=== PATIENT | male | born 1990 | race African-American/Black ===

== ENCOUNTER 2022-08-22 14:00 | Inpatient (IN) | payer OTHER ==
[2022-08-22 15:45] VITALS: BMI 21.1
[2022-08-22] MEDS ORDERED: BISMUTH SUBSALICYLATE 524 MG/30 ML PO PRN (19:01)
[2022-08-22] MEDS ORDERED: NICOTINE 10 MG CARTRIDGE (INHALER) IH PRN (19:01)
[2022-08-22] MEDS ORDERED: cloNIDine HCL 0.1 MG TABLET PO PRN (19:01)
[2022-08-22] MEDS ORDERED: ACETAMINOPHEN 325 MG TABLET (FP) PO PRN ×2 (19:01)
[2022-08-22] MEDS ORDERED: MAGNESIUM CITRATE 300 ML BOTTLE PO PRN (19:01)
[2022-08-22] MEDS ORDERED: BENZOCAINE/MENTHOL (CHLORASEPTIC ) LOZENGE MM PRN (19:01)
[2022-08-22] MEDS ORDERED: IBUPROFEN 600 MG TABLET (FP) PO PRN (19:01)
[2022-08-22] MEDS ORDERED: methaDONE HCL 10 MG TABLET (FOR DETOX USE ONLY) PO ONE (19:01)
[2022-08-22] MEDS ORDERED: NALOXONE HCL (KLOXXADO) 8 MG SPRAY NS PRN (19:01)
[2022-08-22] MEDS ORDERED: IBUPROFEN 400 MG TABLET (FP) PO PRN (19:01)
[2022-08-22] MEDS ORDERED: MAGNESIUM HYDROX 2400MG/30ML ORAL SUSPENSION 30 ML CUP PO PRN (19:01)
[2022-08-22] MEDS ORDERED: MAG HYDROX/AL HYDROX/SIMETH 30 ML UNIT-DOSE CUP PO PRN (19:01)
[2022-08-22] MEDS ORDERED: LOPERAMIDE HCL 2 MG CAPSULE PO PRN (19:01)
[2022-08-22] MEDS: diazePAM 5 MG TABLET PO SCH (23:14)
[2022-08-22] MEDS: MELATONIN 5 MG TABLETS PO SCH (23:14)
[2022-08-22] MEDS: THIAMINE HCL 100 MG TABLET (FP) PO SCH (23:14)
[2022-08-23] MEDS: diazePAM 5 MG TABLET PO SCH ×4 (06:08→23:07)
[2022-08-23] MEDS: METHOCARBAMOL 500 MG TABLET PO PRN (11:10)
[2022-08-23] MEDS: PRENATAL VITAMINS W/ FOLIC ACID TABLET (FP) PO SCH (11:10)
[2022-08-23 12:12] LABS: HEMATOCRIT 38.1 % (35.4-49); HEMOGLOBIN 11.8 GM/dL (11.7-16.9); MCH 23.6 pg (25.7-33.7); MEAN CELL VOLUME 76.1 fl (80-96); MEAN PLT VOLUME 7.3 fl (7.5-11.1); PLATELET COUNT 182 10^3/uL (134-434); RDW 16.7 % (11.9-15.9); WHITE BLOOD COUNT 6.7 K/mm3 (4.0-10.0)
[2022-08-23 12:26] LABS: CALCIUM 9.1 mg/dL (8.5-10.1)
[2022-08-23 12:27] LABS: ALBUMIN 3.4 g/dl (3.4-5.0); BLOOD UREA NITROGEN 10.6 mg/dL (7-18)
[2022-08-23 12:31] LABS: BILIRUBIN,TOTAL 0.5 mg/dL (0.2-1); TOT PROT 7.4 g/dl (6.4-8.2)
[2022-08-23] MEDS: MELATONIN 5 MG TABLETS PO SCH (23:04)
[2022-08-23] MEDS: THIAMINE HCL 100 MG TABLET (FP) PO SCH (23:05)
[2022-08-24] MEDS: ONDANSETRON 4 MG TABLET PO PRN ×2 (03:31→23:17)
[2022-08-24] MEDS: diazePAM 5 MG TABLET PO SCH ×3 (07:57→23:38)
[2022-08-24] MEDS ORDERED: TRIMETHOBENZAMIDE HCL 200MG/2ML INJ IM PRN (08:52)
[2022-08-24] MEDS ORDERED: methaDONE HCL 10 MG TABLET (FOR DETOX USE ONLY) PO ONE (10:00)
[2022-08-24] MEDS: PRENATAL VITAMINS W/ FOLIC ACID TABLET (FP) PO SCH (10:51)
[2022-08-24] MEDS: diazePAM 5 MG TABLET PO PRN (10:52)
[2022-08-24] MEDS: METHOCARBAMOL 500 MG TABLET PO PRN (23:37)
[2022-08-24] MEDS: DICYCLOMINE HCL 10 MG CAPSULE PO PRN (23:37)
[2022-08-24] MEDS: THIAMINE HCL 100 MG TABLET (FP) PO SCH (23:38)
[2022-08-24] MEDS: MELATONIN 5 MG TABLETS PO SCH (23:38)
[2022-08-25] MEDS: diazePAM 5 MG TABLET PO SCH ×2 (05:50→18:44)
[2022-08-25] MEDS: METHOCARBAMOL 500 MG TABLET PO PRN ×2 (10:29→22:51)
[2022-08-25] MEDS: diazePAM 5 MG TABLET PO PRN (10:29)
[2022-08-25] MEDS: PRENATAL VITAMINS W/ FOLIC ACID TABLET (FP) PO SCH (10:30)
[2022-08-25] MEDS: MELATONIN 5 MG TABLETS PO SCH (22:50)
[2022-08-25] MEDS: THIAMINE HCL 100 MG TABLET (FP) PO SCH (22:50)
[2022-08-26] MEDS: METHOCARBAMOL 500 MG TABLET PO PRN (05:52)
[2022-08-26] MEDS ORDERED: diazePAM 5 MG TABLET PO ONE (06:00)
[2022-08-26] MEDS ORDERED: ONDANSETRON *ODT* 4 MG TABLET SL ONE (08:39)
[2022-08-26] MEDS: DICYCLOMINE HCL 10 MG CAPSULE PO PRN (08:56)
[2022-08-26 09:45] VITALS: BP 118/76; PULSE 16; RESP 63; TEMP 98
[2022-08-26] MEDS ORDERED: methaDONE HCL 10 MG TABLET (FOR DETOX USE ONLY) PO ONE (10:00)
[2022-08-26] MEDS: PRENATAL VITAMINS W/ FOLIC ACID TABLET (FP) PO SCH (10:07)
[2022-08-26 11:33] LABS: BLOOD UREA NITROGEN 17.3 mg/dL (7-18)
[2022-08-26 11:34] LABS: CALCIUM 9.9 mg/dL (8.5-10.1)
[2022-08-26 11:36] LABS: CREATININE 1.1 mg/dL (0.55-1.3)
== END 2022-08-26 11:01 | disposition home or self-care (01) | DRG 773 ==
LOC: YASAS 14:00 → Y3N 18:57
PROVIDERS: ADMIT Allergy & Immunology; ATTEND Surgery
PROC: HZ2ZZZZ Detoxification Services for Substance Abuse Treatment (ICD-10-PCS; principal; 2022-08-22)
DX: F11.23 Opioid dependence with withdrawal (principal); F13.20 Sedative, hypnotic or anxiolytic dependence, uncomplicated; F14.20 Cocaine dependence, uncomplicated; F12.20 Cannabis dependence, uncomplicated; F17.210 Nicotine dependence, cigarettes, uncomplicated; F41.9 Anxiety disorder, unspecified; F32.A Depression, unspecified; F43.10 Post-traumatic stress disorder, unspecified; J45.20 Mild intermittent asthma, uncomplicated; R11.2 Nausea with vomiting, unspecified; Z86.69 Personal history of other diseases of the nervous system and sense organs; Z28.310 Unvaccinated for COVID-19; Z28.9 Immunization not carried out for unspecified reason
CPT/HCPCS: 36415; 80048; 80053; 85027; 86780; C9803-CS; Q0162; U0003; U0005